=== PATIENT | male | born 1965 | race Two or more races ===

== ENCOUNTER → 2017-12-04 | Outpatient (CLI) | payer OTHER | END | disposition home or self-care (01) | LOC: RAD 16:08 | DX: M25.511 Pain in right shoulder (principal) ==

== ENCOUNTER 2018-02-05 14:14 | Outpatient (CLI) | payer OTHER | END 2018-02-05 17:04 | disposition home or self-care (01) | LOC: MRI 14:14 | DX: M65.811 Other synovitis and tenosynovitis, right shoulder (principal) | CPT/HCPCS: 73221 ==